=== PATIENT | male | born 1970 | race Caucasian/White ===

== ENCOUNTER 2016-11-21 12:43 | Emergency (ER) | payer SELFPAY ==
[2016-11-21 12:55] VITALS: BP 158/94
[2016-11-21] MEDS ORDERED: Fluorescein Sodium TOPICAL* 1 MG TEST ONE (12:59)
[2016-11-21] MEDS ORDERED: Tetracaine 0.5% OPTH.SOL 4 ML* 1 DROP BTL ONE (13:00)
[2016-11-21] MEDS ORDERED: Eye Irrigation Solution 30 ML BOTTLE ONE (13:00)
--- NOTE | 2016-11-21 13:19 | UC ---
Eye Complaint HPI - HPI Summary HPI Summary: pt c/o left eye pain, redness and clear discharge. Pain worsens with blinking. Pt boxes and reports boxing glove "grazed" left eye with boxing glove. - History of Current Complaint Chief Complaint: UCEye Stated Complaint: EYE COMPLAINT Time Seen by Provider: 11/21/16 12:49 Hx Obtained From: Patient Onset/Duration: Sudden Onset, Lasting Days Timing: Constant Severity Initially: Mild Severity Currently: Mild Location of Injury: Other - cornea Character: Sharp Aggravating Factor(s): Blinking Alleviating Factor(s): Nothing Associated Signs And Symptoms: Positive: Photophobia, Drainage (Clear) - Allergies/Home Medications Allergies/Adverse Reactions: Allergies Allergy/AdvReac Type Severity Reaction Status Date / Time No Known Allergies Allergy Verified 11/21/16 12:55 PMH/Surg Hx/FS Hx/Imm Hx Previously Healthy: Yes Cardiovascular History Of: Reports: Hypertension - NO MEDS AT PRESENT - Surgical History Surgical History: Yes Surgery Procedure, Year, and Place: LITHOTRPSY. HERNIA. T&A. TUBES IN EARS - Family History Known Family History: Positive: Other - positive FMH of contusion - Social History Alcohol Use: Occasionally Substance Use Type: None Smoking Status (MU): Never Smoked Tobacco Review of Systems Constitutional: Negative Skin: Negative Eyes: Drainage - clear, Eye Redness - left eye, Other - left eye pain ENT: Negative Respiratory: Negative Cardiovascular: Negative Gastrointestinal: Negative Genitourinary: Negative Motor: Negative Neurovascular: Negative Musculoskeletal: Negative Neurological: Negative Psychological: Negative All Other Systems Reviewed And Are Negative: Yes Physical Exam Triage Information Reviewed: Yes Appearance: Well-Appearing Vital Signs: Initial Vital Signs Temp 98.9 F 11/21/16 12:50 Pulse 65 11/21/16 12:50 Resp 14 11/21/16 12:50 BP 158/94 11/21/16 12:50 Pulse Ox 99 11/21/16 12:50 Eye Exam: Other Eyes: Positive: Discharge - clear, fluorescein uptake at 6 o'clock position. ENT Exam: Normal Neck exam: Normal Respiratory Exam: Other Respiratory: Positive: No respiratory distress Musculoskeletal Exam: Normal Neurological Exam: Normal Psychological Exam: Normal Skin Exam: Normal Eye Complaint Course/Dx - Course Course Of Treatment: Ity is noted that the pt's blood presslure was elevated at time of visit. I referred the pt to follow up with his PCP within 2 days. - Differential Dx/Diagnosis Differential Diagnosis/HQI/PQRI: Corneal Abrasion Provider Diagnoses: corneal abrasion. elevated blood pressure Discharge - Discharge Plan Condition: Stable Disposition: HOME Prescriptions: Ofloxacin 0.3%(Ophth)(Nf) [Ocuflox OPTH 0.3%(NF)] 2 drop LEFT EYE Q8HR #1 btl Patient Education Materials: Corneal Abrasion (ED) Referrals: Nitin Nicholson MD [Medical Doctor] - Additional Instructions: Please follow up with your eye care provider as soon as possible. Also, it is noted that your blood pressure was elevated at todays visit. Please follwo up with your PCP in 2 days or less regarding this finding.
== END 2016-11-21 13:27 | disposition home or self-care (01) ==
LOC: UCCORT 12:43
DX: S05.02XA Injury of conjunctiva and corneal abrasion without foreign body, left eye, initial encounter (principal); X58.XXXA Exposure to other specified factors, initial encounter; Y93.71 Activity, boxing; Y92.9 Unspecified place or not applicable; R03.0 Elevated blood-pressure reading, without diagnosis of hypertension
CPT/HCPCS: 99202; A9270-GY; G0463